=== PATIENT | female | born 1995 | race Caucasian/White ===

== ENCOUNTER 2023-05-18 22:50 | Inpatient (IN) | payer OTHER ==
[2023-05-18] MEDS ORDERED: PROMETHAZINE HCL 25 MG/1 ML VIAL IVPUSH ONE (23:34)
[2023-05-18] MEDS ORDERED: PROMETHAZINE HCL 25 MG/1 ML VIAL IVPB ONE (23:34)
[2023-05-18] MEDS ORDERED: BUTORPHANOL TARTRATE 1 MG/ML VIAL IVPUSH PRN (23:34)
[2023-05-18] MEDS ORDERED: ELECTROLYTE-148 SOLN 1,000 ML IV SCH (23:45)
[2023-05-18] MEDS: DEXTROSE 5%-LACTATED RINGERS 1,000 ML IV SCH (23:45)
[2023-05-19 00:41] VITALS: BMI 28.7
[2023-05-19 00:51] LABS: INR 0.9 (0.83-1.09); PROTHROMBIN TIME (PATIENT) 10.5 SEC (9.7-13.0)
[2023-05-19 00:53] LABS: ACTIVATED PTT 28.5 SECONDS (25.2-36.5); BASO % 0.2 % (0-2.0); HEMOGLOBIN 12.6 GM/dL (10.7-15.3); MEAN PLT VOLUME 10.3 fl (7.5-11.1)
[2023-05-19 00:58] LABS: HEMATOCRIT 37.9 % (32.4-45.2); LYMPH % 22.6 % (8-40); MCH 30.2 pg (25.7-33.7); MCHC 33.3 g/dl (32.0-36.0); MEAN CELL VOLUME 90.6 fl (80-96); MONO % 5.7 % (3.8-10.2); NEUT % 70.5 % (42.8-82.8); PLATELET COUNT 200 10^3/uL (134-434); RBC 4.19 M/mm3 (3.60-5.2); RDW 14.1 % (11.6-15.6); WHITE BLOOD COUNT 13.2 K/mm3 (4.0-10.0)
[2023-05-19 01:50] LABS: POTASSIUM 3.6 mmol/L (3.5-5.1)
[2023-05-19 01:52] LABS: BLOOD UREA NITROGEN 10.5 mg/dL (7-18); CALCIUM 9.5 mg/dL (8.5-10.1)
[2023-05-19 01:55] LABS: CREATININE 0.6 mg/dL (0.55-1.3)
[2023-05-19 03:27] LABS: ANISOCYTOSIS 1+; MACROCYTOSIS 0
[2023-05-19] MEDS ORDERED: OXYTOCIN 30 UNITS in 0.9% NS 30 UNIT/500 ML INFUS.BAG IVPB SCH (07:00)
[2023-05-19] MEDS ORDERED: PROMETHAZINE HCL 25 MG/1 ML VIAL ONE (07:50)
[2023-05-19] MEDS ORDERED: BUTORPHANOL TARTRATE 1 MG/ML VIAL ONE ×2 (07:51→14:30)
[2023-05-19] MEDS ORDERED: OXYTOCIN 30 UNITS in 0.9% NS 30 UNIT/500 ML INFUS.BAG IVPB ONE (07:57)
[2023-05-19] MEDS: DEXTROSE 5%-LACTATED RINGERS 1,000 ML IV SCH (08:00)
[2023-05-19] MEDS ORDERED: PROMETHAZINE HCL 25 MG/1 ML VIAL IVPUSH ONE (08:10)
[2023-05-19] MEDS ORDERED: BUTORPHANOL TARTRATE 1 MG/ML VIAL IVPUSH ONE (08:10)
[2023-05-19] MEDS ORDERED: PROMETHAZINE HCL 25 MG/1 ML VIAL IVPB ONE (08:10)
[2023-05-19] MEDS ORDERED: OXYTOCIN 20 UNITS in 0.9% NS 20 UNIT/1,000 ML INFUS.BAG IV ONE (13:14)
[2023-05-19] MEDS ORDERED: IBUPROFEN 600 MG TABLET (FP) PO ONE (14:31)
[2023-05-19] MEDS ORDERED: WITCH HAZEL 50% (TUCKS) 40 PAD/JAR PAD TP PRN (14:44)
[2023-05-19] MEDS ORDERED: BENZOCAINE 28 GM HEMORRHOIDAL OINTMENT TP PRN (14:44)
[2023-05-19] MEDS ORDERED: ACETAMINOPHEN 325 MG TABLET (FP) PO PRN (14:44)
[2023-05-19] MEDS ORDERED: BENZOCAINE 20% 57 GM BOTTLE TP PRN (14:44)
[2023-05-19] MEDS ORDERED: BISACODYL 10 MG SUPP.RECT RC PRN (14:44)
[2023-05-19] MEDS ORDERED: oxyCODONE HCL 5 MG TABLET PO PRN (14:44)
[2023-05-19] MEDS ORDERED: METHYLERGONOVINE MALEATE 0.2 MG/1 ML AMP IM PRN (14:44)
[2023-05-19] MEDS ORDERED: OXYTOCIN 20 UNITS in 0.9% NS 20 UNIT/1,000 ML INFUS.BAG IV SCH (14:45)
[2023-05-19] MEDS ORDERED: ceFAZolin 2 GRAM PREMIX BAG IVPB ONE (14:45)
[2023-05-19] MEDS ORDERED: METHYLERGONOVINE MALEATE 0.2 MG/1 ML AMP IM ONE (14:45)
[2023-05-19 14:51] LABS: CORD BASE EXCESS -5.7 mmol/L (0-2); CORD HCO3 19.5 mmHg (20-29); CORD PCO2 37.8 mmHg (30-78); CORD pH 7.331 (7.14-7.44)
[2023-05-19 14:53] LABS: CORD HCO3 24.2 mmHg (20-29); CORD PCO2 58.9 mmHg (30-78); CORD pH 7.231 (7.14-7.44)
[2023-05-19] MEDS: IBUPROFEN 600 MG TABLET (FP) PO PRN (14:58)
[2023-05-19] MEDS ORDERED: CEFAZOLIN SODIUM 2 GM in DEXTROSE 5%-WATER 100 ML IVPB ONE (15:00)
[2023-05-20] MEDS: IBUPROFEN 600 MG TABLET (FP) PO PRN ×2 (03:09→21:05)
[2023-05-20 07:44] LABS: HEMOGLOBIN 10.1 GM/dL (10.7-15.3); MCH 30.6 pg (25.7-33.7); MCHC 33.7 g/dl (32.0-36.0); MEAN PLT VOLUME 10.5 fl (7.5-11.1); PLATELET COUNT 178 10^3/uL (134-434); WHITE BLOOD COUNT 23.3 K/mm3 (4.0-10.0)
[2023-05-20 08:59] LABS: ANISOCYTOSIS 0; HELMET CELLS 0; HOWELL-JOLLY BODIES 0; MACROCYTOSIS 0; OVALOCYTE 0; ROULEAU 0; SICKELED CELLS 0; TARGET CELLS 0; TEAR DROP CELLS 0; TOXIC GRANULATION 0
[2023-05-20] MEDS ORDERED: SENNOSIDES/DOCUSATE COMBO (SENNA PLUS) TABLET (UD) PO PRN (22:00)
[2023-05-21 08:11] LABS: BASO % 0.6 % (0-2.0); EOS % 1.4 % (0-4.5); HEMATOCRIT 29.9 % (32.4-45.2); HEMOGLOBIN 9.9 GM/dL (10.7-15.3); LYMPH % 15.4 % (8-40); MCH 30.2 pg (25.7-33.7); MCHC 33.1 g/dl (32.0-36.0); MEAN CELL VOLUME 91.3 fl (80-96); MEAN PLT VOLUME 9.8 fl (7.5-11.1); MONO % 4.8 % (3.8-10.2); NEUT % 77.8 % (42.8-82.8); PLATELET COUNT 183 10^3/uL (134-434); RBC 3.27 M/mm3 (3.60-5.2); RDW 14.1 % (11.6-15.6); WHITE BLOOD COUNT 15.3 K/mm3 (4.0-10.0)
[2023-05-21 13:10] VITALS: BP 110/69; PULSE 80; RESP 17; TEMP 98.5
== END 2023-05-21 15:50 | disposition home or self-care (01) | DRG 560 ==
LOC: JLDR 22:50 → J3W 05-19 16:54
PROVIDERS: ADMIT Obstetrics & Gynecology; ATTEND Obstetrics & Gynecology
PROC: 10D07Z6 Extraction of Products of Conception, Vacuum, Via Natural or Artificial Opening (ICD-10-PCS; principal; 2023-05-19)
PROC: 0W8NXZZ Division of Female Perineum, External Approach (ICD-10-PCS; 2023-05-19)
DX: O32.4XX0 Maternal care for high head at term, not applicable or unspecified (principal); O66.5 Attempted application of vacuum extractor and forceps; Z3A.39 39 weeks gestation of pregnancy; Z37.0 Single live birth
CPT/HCPCS: 36415; 36600; 80048; 82803; 83655; 85025; 85610; 85730; 86780; 86850; 86870; 86900; 86901; 86902